=== PATIENT | female | born 1950 | race Caucasian/White ===

== ENCOUNTER → 2017-07-05 | Outpatient (CLI) | payer MEDICARE, OTHER ==
--- NOTE | 2017-07-05 11:40 | Diagnostic Imaging Report ---
INDICATION: Shortness of air, productive cough, pneumonia x1 month. TECHNIQUE: Two-view chest at 11:31 a.m. CORRELATION STUDY: None. FINDINGS: The heart size, mediastinal configuration, and pulmonary vasculature are within normal limits. Density over the lower mediastinum is present and may be reflective of a small hiatal hernia. The lungs are clear with no consolidating infiltrate. There is no significant pleural effusion or pneumothorax. Mild biapical pleural thickening. Accentuated kyphotic curvature with degenerative changes in the thoracic spine. IMPRESSION: 1. Negative for acute abnormality in the chest. No findings to suggest underlying consolidative pneumonia. Dictated by: Dictated on workstation # [id number]
== END ==
LOC: RAD 11:03
PROVIDERS: ATTEND Nurse Practitioner Family
DX: J18.9 Pneumonia, unspecified organism (principal); J40 Bronchitis, not specified as acute or chronic
CPT/HCPCS: 71046

== ENCOUNTER → 2017-07-15 | Outpatient (CLI) | payer MEDICARE, OTHER ==
[~2017-07-15] MED LIST: RT-ALBUTEROL SULF 2.5 MG/3 ML PRE-MIX VIAL INH ONE
== END ==
LOC: RT 14:00
PROVIDERS: ATTEND Nurse Practitioner Family
DX: J40 Bronchitis, not specified as acute or chronic (principal); J18.9 Pneumonia, unspecified organism; R06.00 Dyspnea, unspecified; J30.2 Other seasonal allergic rhinitis
CPT/HCPCS: 94060; 94726; 94729

== ENCOUNTER → 2017-10-10 | Outpatient (CLI) | payer MEDICARE, OTHER ==
--- NOTE | 2017-10-10 15:32 | Diagnostic Imaging Report ---
PROCEDURE: CT chest without contrast. TECHNIQUE: Multiple contiguous axial images were obtained through the chest without the use of intravenous contrast. INDICATION: Cough and congestion. Lung nodule. FINDINGS: There is a 6 mm calcified nodule in the right upper lobe. There is minimal tree-in-bud type of infiltrate seen in the lingula with some minimal peribronchial thickening at this site. No suspicious mass is seen within either lung. There is no effusion or pneumothorax. There are several calcified mediastinal lymph nodes with no suspicious mass or lymphadenopathy seen. There is a hiatal hernia. IMPRESSION: There are changes consistent with old granulomatous disease. No suspicious lung nodule is seen. There are tree-in-bud type of infiltrates in the lingula consistent with an inflammatory/infectious etiology. There is a small hiatal hernia. Dictated by: Dictated on workstation # [id number]
== END ==
LOC: RAD 15:16
PROVIDERS: ATTEND Nurse Practitioner Family
DX: J44.9 Chronic obstructive pulmonary disease, unspecified (principal); R91.8 Other nonspecific abnormal finding of lung field
CPT/HCPCS: 71250

== ENCOUNTER 2017-12-05 21:00 | Outpatient (CLI) | payer MEDICARE, OTHER | END 2017-12-06 06:15 | disposition home or self-care (01) | LOC: SLEEP 21:00 | PROVIDERS: ATTEND Nurse Practitioner Family | DX: G47.34 Idiopathic sleep related nonobstructive alveolar hypoventilation (principal); G47.10 Hypersomnia, unspecified; G47.50 Parasomnia, unspecified; G47.30 Sleep apnea, unspecified; R06.02 Shortness of breath | CPT/HCPCS: 95811 ==

== ENCOUNTER → 2018-10-16 | Outpatient (CLI) | payer MEDICARE, OTHER ==
--- NOTE | 2018-10-16 16:20 | Diagnostic Imaging Report ---
EXAMINATION: Noncontrast chest CT for lung cancer screening. HISTORY: 23-avdw-giyt history of smoking. FINDINGS: Comparison is 10/10/2017. There are two new areas of consolidation involving the upper lobes, the one on the right measures 2.6 x 1.9 cm. The one on the left measures 1.0 cm. These both abut the oblique fissure. There is bronchiectasis and nodularity involving the lingula, similar to prior exam. No pneumothorax. No edema. Lungs are emphysematous. Heart size is normal. Aorta is normal in caliber. There are moderate coronary artery calcifications. No axillary, supraclavicular or mediastinal lymphadenopathy. There are calcified mediastinal lymph nodes and a calcified granuloma in the left lower lobe. Limited views of the upper abdomen are normal. There are no suspicious osseous lesions. IMPRESSION: 1. New areas of consolidation in both upper lobes. The appearance is most suggestive of an acute infectious process. However, short-term followup (4 week) is recommended to ensure that these are decreasing as a mucinous type adenocarcinoma could appear similarly. 2. Bronchiectasis and nodularity in the lingula suggestive of an atypical mycobacterial infection such as mycobacterium avium complex. Overall [facility] assessment: 4A. Modifier: S Dictated by: Dictated on workstation # [id number]
== END ==
LOC: RAD 11:13
PROVIDERS: ATTEND Nurse Practitioner Family
DX: J18.1 Lobar pneumonia, unspecified organism (principal); J47.9 Bronchiectasis, uncomplicated; R91.1 Solitary pulmonary nodule

== ENCOUNTER 2018-10-31 05:38 | Outpatient (CLI) | payer MEDICARE, OTHER ==
[~2018-10-31] VITALS: Ht 165.1 cm; Wt 72.6 kg
[2018-10-31] MEDS ORDERED: CYAN250010 PO (11:26)
[2018-10-31] MEDS ORDERED: AROM1FL. PO (11:26)
[2018-10-31] MEDS ORDERED: [UNRECOGNIZED DRUG - REMARK] PO (11:26)
[2018-10-31] MEDS ORDERED: ASCO1TAB39 PO (11:26)
[2018-10-31] MEDS ORDERED: SKELETAL STRENGTH PO (11:26)
[2018-10-31] MEDS ORDERED: [UNRECOGNIZED DRUG - OTHER] PO (11:26)
[2018-10-31] MEDS ORDERED: MULT-178 PO (11:26)
[2018-10-31] MEDS ORDERED: ASCO500T5 PO (11:26)
[2018-10-31] MEDS ORDERED: CHOL20003 PO (11:26)
[2018-10-31] MEDS ORDERED: ACTIVATOR PO (11:26)
[2018-10-31] MEDS ORDERED: [UNRECOGNIZED DRUG - REMARK] PO (11:26)
[2018-10-31] MEDS ORDERED: FOOD ENZYMES PO (11:26)
[2018-10-31] MEDS ORDERED: DESL5TAB PO (11:26)
[2018-10-31] MEDS ORDERED: OMEG1CAP24 PO (11:26)
[2018-10-31] MEDS ORDERED: MONT10TA24 PO (11:26)
== END 2018-10-31 11:32 ==
LOC: PREOP 05:38
PROVIDERS: ATTEND Internal Medicine Critical Care Medicine
DX: Z01.818 Encounter for other preprocedural examination (principal); G47.30 Sleep apnea, unspecified; J40 Bronchitis, not specified as acute or chronic; J30.2 Other seasonal allergic rhinitis; J44.9 Chronic obstructive pulmonary disease, unspecified; R91.1 Solitary pulmonary nodule

== ENCOUNTER → 2018-11-02 | Day surgery (SDC) | payer MEDICARE, OTHER ==
[2018-11-02] VITALS (14 sets, daily range): BP systolic 105–144; BP diastolic 56–86
[~2018-11-02] VITALS: Ht 165.1 cm; Wt 72.6 kg
[~2018-11-02] MED LIST changes: +ACTIVATOR PO; +AROM1FL. PO; +ASCO1TAB39 PO; +ASCO500T5 PO; +ASCO500T6 PO; +CEFE2FRO IV; +CHOL20003 PO; +CYAN250010 PO; +DESL5TAB PO; +DESL5TAB41 PO; +FLUT1BLS3 INH; +FLUT9.9S NS; +FOOD ENZYMES PO; +LIDOCAINE JELLY 2% 6 ML SYRINGE TOP ONE; +LIDOCAINE PF 1% 2 ML VIAL IJ ONE; +LIDOCAINE PF 2% 5 ML (XYLOCAINE) VIAL INJ ONE; +LUNG SUPPORT PO; +MIDAZOLAM 2 MG/2 ML (VERSED) VIAL IVP ONE; +MIDAZOLAM 2 MG/2 ML (VERSED) VIAL ONE; +MONT10TA24 PO; +MULT-178 PO; +NS IV 500 ML 500 ML ONE; +OMEG1CAP24 PO; +RT-ALBUINH INH; -RT-ALBUTEROL SULF 2.5 MG/3 ML PRE-MIX VIAL INH ONE; +SKELETAL STRENGTH PO; +SODIUM BICARB 8.4% 50 MEQ/50 ML VIAL ONE; +[UNRECOGNIZED DRUG - OTHER] PO; +[UNRECOGNIZED DRUG - REMARK] PO; +[UNRECOGNIZED DRUG - REMARK] PO; +[UNRECOGNIZED DRUG - REMARK] PO; +fentaNYL INJECTION 100 MCG/2 ML AMP IVP ONE; +fentaNYL INJECTION 100 MCG/2 ML AMP ONE
[2018-11-02] MEDS: NS IV 500 ML 500 ML IV PRN ×2 (07:20→07:25)
--- NOTE | 2018-11-02 08:07 | Pulmonary Procedures ---
Pulmonary Procedures Date of Procedure Date of Service: Nov 02, 2018 Bronch Bronchoscopy with brush x 2 rakesh, RUL bronchoalveolar lavage (BAL), bilateral bronchial washes and, transbronchial brushes using fluoroscopy . Preop DX lung nodule/infiltrate Postop DX: same - No endobronchial mass Complications: none After informed consent obtained and formal time out pt was sedated using Fentanyl and Versed. Bronchoscope was advanced through the nare and vocal cords. 1% lidocaine was used to anesthetize vocal cords, epiglottis, rakesh, and left/right main stem bronchus. An anatomical tour was undertaken down to the segmental bronchi bilaterally. No endobronchial lesions noted. brush x 2 rakesh, RUL bronchoalveolar lavage (BAL), bilateral bronchial washes and, transbronchial brushes using fluoroscopy were obtained. Pt tolerated procedure well. No complications noted. Stat CXR is pending. SAMIR CROSS DO Nov 02, 2018 08:07
--- NOTE | 2018-11-02 08:08 | Progress Note-Pre Operative ---
Pre-Operative Progress Note H&P Reviewed The H&P was reviewed, patient examined and no changes noted. Time Seen by Provider: 07:30 Date H&P Reviewed: Nov 02, 2018 Time H&P Reviewed: 08:08 Pre-Operative Diagnosis: SMAIR MELTON DO Nov 02, 2018 08:08
--- NOTE | 2018-11-02 08:09 | Pre-Op Note & Conscious Sedat ---
Pre-Operative Progress Note H&P Reviewed The H&P was reviewed, patient examined and no changes noted. Date H&P Reviewed: Nov 02, 2018 Time H&P Reviewed: 07:30 Conscious Sedation Pre-Proced Time 07:30 ASA Score 3 For ASA 3 and 4: Consider anesthesia and medical clearance. Also, for patients with a history of failed moderate sedation consider anesthesia. Airway Lungs Heart ASA score ASA 1: a normal healthy patient ASA 2: a patient with a mild systemic disease (mid diabetes, controlled hypertension, obesity ASA 3: a patient with a severe systemic disease that limits activity (angina, COPD, prior Myocardial infarction) ASA 4: a patient with an incapacitating disease that is a constant threat to life (CHF, renal failure) ASA 5: a moribund patient not expected to survive 24 hrs. (ruptured aneurysm) ASA 6: a declared brain- patient whose organs are being harvested. For emergent operations, add the letter E after the classification Mallampati Classification Grade 3 Sedation Plan Analgesia, Amnesia, Plan communicated to team members, Discussed options with patient/fam, Discussed risks with patient/fam The patient is an appropriate candidate to undergo the planned procedure, sedation, and anesthesia. The patient immediately re-assessed prior to indication. SAMIR CROSS DO Nov 02, 2018 08:09
--- NOTE | 2018-11-02 08:47 | Diagnostic Imaging Report ---
INDICATION: Post bronchoscopy. Frontal chest obtained at 8:36 a.m. and compared to 07/05/2017. FINDINGS: Heart is normal in size. Mediastinal silhouette appears unremarkable. There is a small hiatal hernia. There is ill-defined density in the right upper lobe. There is no pneumothorax or pleural fluid post bronchoscopy. IMPRESSION: Small ill-defined nodular density overlying right upper lobe. No pneumothorax or pleural fluid following bronchoscopy. Dictated by: Dictated on workstation # [id number]
--- NOTE | 2018-11-02 08:59 | Diagnostic Imaging Report ---
Indication: Bronchoscopy. 21 seconds of fluoroscopy time were utilized during bronchoscopy. Impression: 21 seconds of fluoroscopy utilized during bronchoscopy. Dictated by: Dictated on workstation # [id number]
== END | disposition home or self-care (01) ==
LOC: ENDO 07:01
PROVIDERS: ATTEND Internal Medicine Critical Care Medicine
DX: R91.1 Solitary pulmonary nodule (principal); J44.9 Chronic obstructive pulmonary disease, unspecified; G47.33 Obstructive sleep apnea (adult) (pediatric); J30.2 Other seasonal allergic rhinitis; Z88.0 Allergy status to penicillin; Z88.1 Allergy status to other antibiotic agents; Z79.899 Other long term (current) drug therapy; Z87.891 Personal history of nicotine dependence
CPT/HCPCS: 71045; 87015; 87070; 87077; 87101; 87116; 87186; 87205; 87206; 88112; 88305; 88312; 94640

== ENCOUNTER 2018-11-07 13:41 | Inpatient (IN) | payer MEDICARE, OTHER ==
[~2018-11-07] VITALS: Ht 165.1 cm; Wt 74.8 kg
[~2018-11-07 13:41] MED LIST changes: -ASCO500T6 PO; -CEFE2FRO IV; -DESL5TAB41 PO; -FLUT1BLS3 INH; -FLUT9.9S NS; -LIDOCAINE JELLY 2% 6 ML SYRINGE TOP ONE; -LIDOCAINE PF 1% 2 ML VIAL IJ ONE; -LIDOCAINE PF 2% 5 ML (XYLOCAINE) VIAL INJ ONE; -LUNG SUPPORT PO; -MIDAZOLAM 2 MG/2 ML (VERSED) VIAL IVP ONE; -MIDAZOLAM 2 MG/2 ML (VERSED) VIAL ONE; -NS IV 500 ML 500 ML ONE; -RT-ALBUINH INH; -SODIUM BICARB 8.4% 50 MEQ/50 ML VIAL ONE; -[UNRECOGNIZED DRUG - REMARK] PO; -fentaNYL INJECTION 100 MCG/2 ML AMP IVP ONE; -fentaNYL INJECTION 100 MCG/2 ML AMP ONE
--- NOTE | 2018-11-07 14:00 | NUR ---
ISMAEL BURCIAGA admitted to room 429-1, with an admitting diagnosis of PNEUMONIA, on 11/07/[address] CROSS OFFICE via W/C, accompanied by STAFF AND FAMILY. ISMAEL BURCIAGA introduced to surroundings, call light, bed controls, phone, TV, temperature control, lights, meal times, smoking policy, visitor policy, side rail policy, bathrooms and showers. Patient Rights given to patient in the handbook. ISMAEL BURCIAGA verbalizes understanding that [facility] is not responsible for the loss or damage to any personal effects or valuables that are kept in the patients posession during their hospitalization. The following Patient Care Plans were discussed with the PATIENT: Discharge Planning, INFECTION,KNOWLEDGE AND INEFFECTIVE BREATHING. ISMAEL BURCIAGA verbalizes understanding of Interdisciplinary Patient Education.
[2018-11-07 14:30] VITALS: BP 130/71
[2018-11-07 14:38] VITALS: BP 130/70
[2018-11-07 14:54] LABS: BILIRUBIN,URINE NEGATIVE (NEGATIVE); CLARITY,URINE CLEAR; COLOR,URINE YELLOW; GLUCOSE, URINE (UA) NEGATIVE (NEGATIVE); KETONES,URINE NEGATIVE (NEGATIVE); LEUKOCYTE ESTERASE ,URINE NEGATIVE (NEGATIVE); NITRITE,URINE NEGATIVE (NEGATIVE); PH,URINE 5 (5-9); PROTEIN,URINE NEGATIVE (NEGATIVE); UROBILINOGEN,URINE NORMAL (NORMAL)
[2018-11-07] MEDS ORDERED: DESL5TAB41 PO (14:58)
[2018-11-07] MEDS ORDERED: ASCO500T6 PO (14:58)
[2018-11-07] MEDS ORDERED: [UNRECOGNIZED DRUG - REMARK] PO (14:58)
[2018-11-07] MEDS ORDERED: LUNG SUPPORT PO (14:58)
[2018-11-07] MEDS ORDERED: FLUT1BLS3 INH (14:58)
[2018-11-07] MEDS ORDERED: FLUT9.9S NS (14:59)
[2018-11-07] MEDS ORDERED: RT-ALBUINH INH (14:59)
[2018-11-07 15:05] LABS: BACTERIA,URINE TRACE /HPF; RBC,URINE RARE /HPF; SQUAMOUS EPITHELIAL CELL,UR RARE /HPF
[2018-11-07] MEDS ORDERED: NS IV 1000 ML 1,000 ML ONE (15:08)
--- NOTE | 2018-11-07 15:09 | NUR ---
PATIENT HAD A MEDICATION LIST WITH HER AND THERE WAS A LIST FROM THE DR OFFICE ON HER CHART. WE WENT OVER BOTH LISTS WELL THE EXT MED HX. SHE STATES SHE IS NO LONGER TAKING THE FEXOFENADINE 180MG THAT WAS FILLED 07-24-18 #90 OTC MEDICATIONS INCLUDE: FLONASE 2 SPRAYS DAILY MTV HS B12 2500MCG HS VITAMIN D 2000IU HS FISH OIL 2 HS HAIR SKIN AND NAILS +BIOTIN HS VITAMIN C 500MG HS CASCARA [place] HS FOOD ENZYMES 1 CAP WITH LUNCH AND 1 CAP WITH DINNER LUNG SUPPORT HS POTASSIUM COMBO HS KIDNEY ACTIVATOR HS SKELETAL STRENGTH HS SF FORMULA HS (SEVERAL OF HER OTC MEDS ARE NATURE'S SUNSHINE HERBS)
[2018-11-07 15:14] LABS: HEMOGLOBIN 12.9 G/DL (11.5-16.0); MEAN PLATELET VOLUME 11.6 FL (7.4-10.4); RED CELL DISTRIBUTION WIDTH 13.2 % (10.0-14.5); WHITE BLOOD COUNT 7.1 10^3/uL (4.3-11.0)
--- NOTE | 2018-11-07 15:25 | Diagnostic Imaging Report ---
INDICATION: Pneumonia. TIME OF EXAMINATION: 2:49 PM. COMPARISON: 11/02/2018. FINDINGS: The heart size is stable. Minimal patchy infiltrate in the right upper lobe does appear to be improved and partially cleared. The remainder of the lung hernandez is stable. No effusion or pneumothorax is identified. IMPRESSION: Partial clearing of the right upper lobe pneumonia since the exam of 5 days earlier. Dictated by: Dictated on workstation # [id number]
[2018-11-07] MEDS ORDERED: RT-ALBUTEROL/IPRATROPIUM 3 ML (DUONEB) VIAL IH PRN (15:30)
[2018-11-07] MEDS ORDERED: CATHETER FLUSH 10 ML SYR IV PRN (15:30)
[2018-11-07] MEDS: CEFEPIME 1,000 MG/SWFI 10 ML IV PUSH IV SCH ×2 (15:33)
[2018-11-07] MEDS: NS IV 1000 ML 1,000 ML IV SCH (15:33)
[2018-11-07 15:34] LABS: ALANINE AMINOTRANSFERASE 21 U/L (0-55); ALBUMIN 3.8 GM/DL (3.2-4.5); ALKALINE PHOSPHATASE 111 U/L (40-136); BILIRUBIN,TOTAL 0.4 MG/DL (0.1-1.0); BUN/CREATININE RATIO 23; CALCIUM 9.5 MG/DL (8.5-10.1); CARBON DIOXIDE 25 MMOL/L (21-32); CHLORIDE 104 MMOL/L (98-107); CREATININE SERUM 0.77 MG/DL (0.60-1.30); GFR ESTIMATED > 60; GLUCOSE 140 MG/DL (70-105); MAGNESIUM 2.2 MG/DL (1.6-2.4); PHOSPHORUS 2.8 MG/DL (2.3-4.7); POTASSIUM 3.4 MMOL/L (3.6-5.0); SODIUM 139 MMOL/L (135-145)
[2018-11-07] MEDS: ENOXAPARIN 40 MG/0.4 ML (LOVENOX) SYR SC SCH (15:34)
[2018-11-07 16:02] VITALS: BP 137/72
[2018-11-07 20:33] VITALS: BP 144/78
[2018-11-08 00:05] VITALS: BP 134/81
[2018-11-08] MEDS: CEFEPIME 1,000 MG/SWFI 10 ML IV PUSH IV SCH ×4 (00:08→08:29)
[2018-11-08 04:30] VITALS: BP 119/61
[2018-11-08] MEDS: NS IV 1000 ML 1,000 ML IV SCH (05:11)
[2018-11-08 05:39] LABS: BASOPHILS % (AUTO) 1 % (0-10); EOSINOPHILS # (AUTO) 0.1 10^3/uL (0.0-0.3); EOSINOPHILS % (AUTO) 2 % (0-10); HEMATOCRIT 35 % (35-52); HEMOGLOBIN 11.6 G/DL (11.5-16.0); LYMPHOCYTES # (AUTO) 1.3 X 10^3 (1.0-4.0); LYMPHOCYTES % (AUTO) 23 % (12-44); MEAN CORPUSCULAR HEMOGLOBIN 32 PG (25-34); MEAN CORPUSCULAR HGB CONC 33 G/DL (32-36); MEAN CORPUSCULAR VOLUME 96 FL (80-99); MEAN PLATELET VOLUME 11.8 FL (7.4-10.4); MONOCYTES # (AUTO) 0.6 X 10^3 (0.0-1.0); MONOCYTES % (AUTO) 11 % (0-12); NEUTROPHILS # (AUTO) 3.7 X 10^3 (1.8-7.8); NEUTROPHILS % (AUTO) 64 % (42-75); PLATELET COUNT 150 10^3/uL (130-400); RED CELL DISTRIBUTION WIDTH 13.3 % (10.0-14.5); WHITE BLOOD COUNT 5.7 10^3/uL (4.3-11.0)
[2018-11-08 06:00] LABS: BUN/CREATININE RATIO 15; CALCIUM 8.7 MG/DL (8.5-10.1); CARBON DIOXIDE 22 MMOL/L (21-32); CHLORIDE 108 MMOL/L (98-107); CREATININE SERUM 0.66 MG/DL (0.60-1.30); GFR ESTIMATED > 60; GLUCOSE 93 MG/DL (70-105); MAGNESIUM 1.7 MG/DL (1.6-2.4); POTASSIUM 3.3 MMOL/L (3.6-5.0); SODIUM 141 MMOL/L (135-145)
[2018-11-08 08:00] VITALS: BP 143/83
[2018-11-08] MEDS: RT-ALBUTEROL/IPRATROPIUM 3 ML (DUONEB) VIAL IH SCH ×2 (09:35→14:28)
[2018-11-08] MEDS ORDERED: CEFE2FRO IV (11:43)
--- NOTE | 2018-11-08 11:52 | History & Physical-Hospitalist ---
History of Present Illness HPI/Chief Complaint Leeanna Roman is a 67-year-old female who presented to as a direct admission from pulmonary clinic with pneumonia due to Pseudomonas. She reports that she had been having fevers for about a week. She has also been having a cough and worsening shortness of breath over this time. She has had difficulty with pneumonias in the past. She follows with Dr. Romeo, pulmonology. She recently underwent a bronchoscopy and the cultures turn positive for Pseudomonas. Due to her history of allergies to penicillin and Levaquin, she was unable to receive oral antibiotics. She denies any chest pain, abdominal pain, nausea, vomiting. Source: patient Exam Limitations: no limitations Date Seen 11/08/18 Time Seen by a Provider: 09:30 Attending Physician Delaney Garcia MD PCP Trung Mcintyre DO Referring Physician Date of Admission Nov 07, 2018 at 14:00 Home Medications & Allergies Home Medications Reviewed patient Home Medication Reconciliation performed by pharmacy medication reconciliations autocad technician and/or nursing. Patients Allergies have been reviewed. Allergies Allergies Coded Allergies Penicillins (Unverified Allergy, Severe, RASH, 07/15/17) levofloxacin (Unverified Allergy, Severe, RASH, 07/15/17) Past Cspwfnz-Hlgffb-Gjsvmc Hx Past Med/Social Hx: Reviewed Nursing Past Med/Soc Hx Patient Social History Alcohol Use: Denies Use Recreational Drug Use: No Former Smoker, Quit: Oct 31, 2004 2nd Hand Smoke Exposure: No Physical Abuse Screen: No Sexual Abuse: No Recent Foreign Travel: Yes Contact w/other who traveled: Yes Recent Hopitalizations: No Recent Infectious Disease Expo: Yes Seasonal Allergies Seasonal Allergies: Yes Past Medical History Currently Using CPAP: Yes Currently Using BIPAP: No Sexually Transmitted Disease: No HIV/AIDS: No Genitourinary: UTI-Chronic Gastrointestinal: Gastroesophageal Reflux, Chronic Constipation Musculoskeletal: Arthritis HEENT: Cataract Loss of Vision: Denies Hearing Impairment: Denies Cancer: Cervical History of Blood Disorders: No Adverse Reaction to Blood Murrell: No (N/A) Review of Systems Constitutional: fever EENTM: nose congestion Respiratory: cough, phlegm, short of breath Cardiovascular: no symptoms reported Gastrointestinal: no symptoms reported Genitourinary: no symptoms reported Musculoskeletal: no symptoms reported Skin: no symptoms reported Psychiatric/Neurological: No Symptoms Reported Physical Exam Physical Exam Vital Signs Vital Signs - First Documented 11/07/18 14:30 Temp 99.6 Pulse 90 Resp 18 B/P (MAP) 130/71 (90) Pulse Ox 96 O2 Delivery Room Air Capillary Refill : Height, Weight, BMI Height: 5'5.00" Weight: 165lbs. 0.0oz. 74.127560jz; 27.5 BMI Method: General Appearance: No Apparent Distress, WD/WN HEENT: PERRL/EOMI, Pharynx Normal Neck: Normal Inspection, Non Tender, Supple Respiratory: Lungs Clear, Normal Breath Sounds, No Respiratory Distress; No C rackles, No Wheezing Cardiovascular: Regular Rate, Rhythm, No Edema, No Murmur Gastrointestinal: Normal Bowel Sounds, Non Tender, Soft Extremity: Normal Inspection, Non Tender, No Pedal Edema Neurologic/Psychiatric: Alert, Oriented x3, No Motor/Sensory Deficits Skin: Normal Color, Warm/Dry Lymphatic: No Adenopathy Results Results/Procedures Labs Laboratory Tests 11/07/18 14:56 11/08/18 05:00 Patient resulted labs reviewed. Imaging: Reviewed Imaging Report Assessment/Plan Admission Diagnosis Pneumonia due to Pseudomonas Admission Status: Inpatient Order (span 2 midnights) Reason for Inpatient Admission: IV antibiotics Assessment and Plan Pneumonia due to Pseudomonas chest x-ray consistent with pneumonia WBC normal, presentation not consistent with sepsis Bronchoscopy culture growing Pseudomonas allergies to penicillin and Levaquinwith anaphylaxis Started on cefepime, tolerating well Please midline for outpatient antibiotics Social work consultation for assistance with outpatient antibiotics Planning for cefepime 2 g IV twice daily for 10 days total Hypokalemia Monitor replace as needed Diagnosis/Problems Diagnosis/Problems (1) Pneumonia due to Pseudomonas Status: Acute (2) Hypokalemia Status: Acute Clinical Quality Measures DVT/VTE Risk/Contraindication: Risk Factor Score Per Nursin RFS Level Per Nursing on Admit: 4+=Very High DELANEY GARCIA MD Nov 08, 2018 11:52
[2018-11-08 12:00] VITALS: BP 99/62
--- NOTE | 2018-11-08 13:05 | Pulmonary Consultation ---
History of Present Illness History of Present Illness Date of Consultation 11/08/18 13:02 Date of Admission Allergies and Home Medications Allergies Coded Allergies: Penicillins (Unverified Allergy, Severe, RASH, 07/15/17) levofloxacin (Unverified Allergy, Severe, RASH, 07/15/17) Home Medications Albuterol Sulfate 1 Puff Puff, 2 PUFF INH Q4H PRN for SHORTNESS OF BREATH, (Reported) Aromatic Cascara Fluid Extract 1 Ml Fl.extract, 1 CAP PO DAILY PRN for BOWEL REGULARITY, (Reported) Ascorbic Acid 500 Mg Tablet, 500 MG PO HS, (Reported) Ascorbic Acid/Vitamin E/Biotin 1 Each Tab.chew, 1 TAB.CHEW PO HS, (Reported) Cefepime HCl/Dextrose, Iso-Osm 2 Gm/100 Ml Froz.piggy, 2 GM IV BID Prescribed by: DELANEY GARCIA on 11/08/18 1143 Cholecalciferol (Vitamin D3) 2,000 Unit Capsule, 2,000 UNIT PO HS, (Reported) Cyanocobalamin (Vitamin B-12) 2,500 Mcg Tablet, 2,500 MCG PO HS, (Reported) Desloratadine 5 Mg Tablet, 5 MG PO HS, (Reported) Fluticasone Propionate 9.9 Ml [place].susp, 2 SPRAY NS DAILY, (Reported) Fluticasone/Umeclidin/Vilanter 1 Each Blst.w.dev, 1 PUFF INH DAILY, (Reported) Montelukast Sodium 10 Mg Tablet, 10 MG PO HS, (Reported) Multivitamin 1 Each Tablet, 1 TAB PO HS, (Reported) [place]-3 Fatty Acids/Fish Oil 1 Each Capsule.dr, 2 CAP PO HS, (Reported) [Food Enzymes] , 1 CAP PO 1200,1730, (Reported) [Kidney Activator] , 1 CAP PO HS, (Reported) [Lung Support] , 1 CAP PO HS, (Reported) [Potassium Combo] , 1 CAP PO HS, (Reported) [Sf Formula] , 1 CAP PO HS, (Reported) [Skeletal Strength] , 1 CAP PO HS, (Reported) Past Bmlatqg-Gscsug-Vooymb Hx Past Med/Social Hx: Reviewed Nursing Past Med/Soc Hx Patient Social History Alcohol Use: Denies Use Recreational Drug Use: No Former Smoker, Quit: Oct 31, 2004 2nd Hand Smoke Exposure: No Recent Foreign Travel: Yes Contact w/Someone Who Travel: Yes Recent Infectious Disease Expo: Yes Recent Hopitalizations: No Seasonal Allergies Seasonal Allergies: Yes Past Medical History Surgeries: Yes (LEFT BREAST BX, HERNIA, D&C, CATARACT) Respiratory: Yes (SOB) Asthma, Pneumonia, Sleep Apnea, COPD Currently Using CPAP: Yes Currently Using BIPAP: No Cardiac: No Neurological: No Sexually Transmitted Disease: No HIV/AIDS: No Genitourinary: Yes UTI-Chronic Gastrointestinal: Yes Gastroesophageal Reflux, Chronic Constipation Musculoskeletal: Yes Arthritis Endocrine: No HEENT: Yes (GLASSES) Cataract Loss of Vision: Denies Hearing Impairment: Denies Cancer: Yes (cervical cancer 1969) Cervical Psychosocial: No Integumentary: No Blood Disorders: No Adverse Reaction/Blood Tranf: No (N/A) Review of Systems Time Seen by Provider: 13:05 Sepsis Event Evaluation Height, Weight, BMI Height: 5'5.00" Weight: 165lbs. 0.0oz. 74.291329jy; 27.5 BMI Method: Exam Exam Vital Signs Date Time Temp Pulse Resp B/P (MAP) Pulse Ox O2 Delivery O2 Flow Rate FiO2 11/08/18 12:00 97.6 88 18 99/62 (74) 94 Room Air 11/08/18 09:35 97 Room Air 11/08/18 08:00 98.0 84 18 143/83 (103) 95 Room Air 11/08/18 08:00 Room Air 11/08/18 04:30 98.2 85 18 119/61 (80) 95 NIV CPAP 11/08/18 00:55 98.5 11/08/18 00:05 100.5 89 18 134/81 (98) 93 Room Air 11/07/18 20:33 99.8 84 18 144/78 (100) 95 Room Air 11/07/18 20:00 95 Room Air 11/07/18 19:51 95 Room Air 11/07/18 16:42 Room Air 11/07/18 16:02 99.2 89 18 137/72 (93) 95 Room Air 11/07/18 14:38 99.6 90 18 130/70 Room Air 11/07/18 14:30 99.6 90 18 130/71 (90) 96 Room Air I & O 11/08/18 07:00 Intake Total 1810 ml Output Total 1150 ml Balance 660 ml Height & Weight Height: 5'5.00" Weight: 165lbs. 0.0oz. 74.574120rz; 27.5 BMI Method: General Appearance: No Apparent Distress, WD/WN HEENT: PERRL/EOMI, Pharynx Normal Neck: Normal Inspection, Non Tender, Supple Respiratory: Lungs Clear, Normal Breath Sounds, No Respiratory Distress Cardiovascular: Regular Rate, Rhythm, No Edema, No Murmur Extremity: Normal Inspection, Non Tender, No Pedal Edema Neurologic/Psychiatric: Alert, Oriented x3, No Motor/Sensory Deficits Skin: Normal Color, Warm/Dry Lymphatic: No Adenopathy Results Lab Laboratory Tests 11/07/18 14:56 11/08/18 05:00 Assessment/Plan Assessment/Plan Pseudomonas PNA - Pt is allergic to PCN and Levaquin -Currently on Cefepime -trying to arrange out pt abx currently -Will need 10-14 days of IV abx -Will f/u next Tuesday at 1300 if discharged to ensure pt is improving SAMIR CROSS DO Nov 08, 2018 13:05
--- NOTE | 2018-11-08 14:04 | Discharge Inst-Simple/Standard ---
Discharge Inst-Standard Reconcile Patient Problems Problems Reviewed?: Yes Discharge Medications New, Converted or Re-Newed RX: RX on Chart Patient Instructions/Follow Up Plan of Care/Instructions/FU: Take medications as prescribed. Antibiotic plan in place. Follow up with Dr. Romeo on 11/14 at 1 pm with a CBC and chest xray prior to the appointment. Activity as Tolerated: Yes Discharge Diet: No Restrictions Return to The Hospital For: persistent fevers, shortness of breath, chest pain, or if you feel like you are getting worse Planned Outpatient Orders/Ref. Pneu Vac Indicated: Yes DELANEY GARCIA MD Nov 08, 2018 14:04
[2018-11-08] MEDS ORDERED: CEFEPIME INJECTION 2,000 MG in WATER (STERILE) FOR INJECTION 20 ML IV NR (14:15)
[2018-11-08] MEDS: ENOXAPARIN 40 MG/0.4 ML (LOVENOX) SYR SC SCH (14:29)
--- NOTE | 2018-11-08 15:04 | NUR ---
CM/SS. Respond to consult for outpatient antibiotics x 9 days. OP ABX: Coordinated with [facility], patient's home town. Worked in partnership with Rosalio salgado, all requests met for orders and instructions. Patient understands she is to report there at 0900 and contact information was provided so she can get questions answered if they arise.
[2018-11-08 16:49] VITALS: BP 99/62
--- NOTE | 2018-11-09 14:04 | Discharge Summary ---
Diagnosis/Chief Complaint Date of Admission Nov 08, 2018 at 09:43 Date of Discharge Nov 08, 2018 at 16:50 Discharge Date: Nov 08, 2018 Admission Diagnosis Pneumonia due to Pseudomonas Primary Care Trung Mcintyre DO Discharge Diagnosis Pneumonia due to Pseudomonas (1) Pneumonia due to Pseudomonas Status: Acute (2) Hypokalemia Status: Resolved Discharge Summary Discharge Physical Exam Allergies: Coded Allergies: Penicillins (Unverified Allergy, Severe, RASH, 07/15/17) levofloxacin (Unverified Allergy, Severe, RASH, 07/15/17) Vitals & I&Os Vital Signs Date Time Temp Pulse Resp B/P (MAP) Pulse Ox O2 Delivery O2 Flow Rate FiO2 11/08/18 16:49 88 18 99/62 95 Room Air 11/08/18 12:00 97.6 General Appearance: No Apparent Distress Hospital Course Leeanna Roman is a 67-year-old female who was admitted with pneumonia due to Pseudomonas. She had been having fevers for the past week. She underwent a bronchoscopy and cultures grew Pseudomonas. Due to allergies she required IV antibiotics. She was started on IV cefepime and this was continued on disch arge. She has had up to receive IV antibiotics as an outpatient. She'll follow up with Dr. Romeo in his clinic prior to antibiotic cessation. Labs (last 24 hrs) Patient resulted labs reviewed. Imaging: Reviewed Imaging Report Discussion & Recommendations Discharge Planning: >30 minutes discharge planning Coordination of care Discharge Home Medications: Active Scripts Active Cefepime 2 gm Injection (Cefepime HCl/Dextrose, Iso-Osm) 2 Gm/100 Ml Froz.piggy 2 Gm IV BID 9 Days Reported Flonase Allergy Relief (Fluticasone Propionate) 9.9 Ml [place].susp 2 [place]ony NS DAILY Proair Hfa (Albuterol Sulfate) 1 Puff Puff 2 Puff INH Q4H PRN Desloratadine 5 Mg Tablet 5 Mg PO HS Trelegy Ellipta 100-62.5-25 (Fluticasone/Umeclidin/Vilanter) 1 Each Blst.w.dev 1 Puff INH DAILY [Lung Support] 1 Cap PO HS [Sf Formula] 1 Cap PO HS Vitamin C (Ascorbic Acid) 500 Mg Tablet 500 Mg PO HS [place] (Aromatic [place]ascara Fluid Extract) 1 Ml Fl.extract 1 Cap PO DAILY PRN [Food Enzymes] 1 Cap PO 1200,1730 [Skeletal Strength] 1 Cap PO HS [Potassium Combo] 1 Cap PO HS [Kidney Activator] 1 Cap PO HS Hair Skin Nails-Biotin Gummies (Ascorbic Acid/Vitamin E/Biotin) 1 Each Tab.chew 1 Tab.chew PO HS Vitamin B12 (Cyanocobalamin (Vitamin B-12)) 2,500 Mcg Tablet 2,500 Mcg PO HS Vitamin D3 (Cholecalciferol (Vitamin D3)) 2,000 Unit Capsule 2,000 Unit PO HS Multiple Vitamins (Multivitamin) 1 Each Tablet 1 Tab PO HS [place] 3 Fish Oil Softgel ([place]-3 Fatty Acids/Fish Oil) 1 Each Capsule. 2 Cap PO HS Montelukast Sodium 10 Mg Tablet 10 Mg PO HS Condition at discharge Stable Instructions to patient/family Please see electronic discharge instructions given to patient. Clinical Quality Measures DVT/VTE Risk/Contraindication: Risk Factor Score Per Nursin RFS Level Per Nursing on Admit: 4+=Very High DELANEY GARCIA MD Nov 09, 2018 14:04
== END 2018-11-08 16:50 | disposition home or self-care (01) | DRG 179 ==
LOC: UNDOADMIN 14:00 → 4TH 14:00 → UNDODISIN 11-08 16:50
PROVIDERS: ADMIT Internal Medicine Critical Care Medicine; ATTEND Internal Medicine
DX: J15.1 Pneumonia due to Pseudomonas (principal); J30.2 Other seasonal allergic rhinitis; J44.9 Chronic obstructive pulmonary disease, unspecified; K21.9 Gastro-esophageal reflux disease without esophagitis; K59.09 Other constipation; G47.30 Sleep apnea, unspecified; M19.91 Primary osteoarthritis, unspecified site; E87.6 Hypokalemia; Z88.0 Allergy status to penicillin; Z88.1 Allergy status to other antibiotic agents; Z87.891 Personal history of nicotine dependence; Z85.41 Personal history of malignant neoplasm of cervix uteri; Z87.440 Personal history of urinary (tract) infections
CPT/HCPCS: 36415; 71045; 76937; 80048; 80053; 81000; 83735; 84100; 85025; 85027; 87040; 94640; 94664; 94760

== ENCOUNTER → 2018-11-14 | Outpatient (CLI) | payer MEDICARE, OTHER ==
[~2018-11-14] MED LIST changes: +ASCO500T6 PO; +CEFE2FRO IV; +DESL5TAB41 PO; +FLUT1BLS3 INH; +FLUT9.9S NS; +LUNG SUPPORT PO; +RT-ALBUINH INH; +[UNRECOGNIZED DRUG - REMARK] PO
[2018-11-14 14:10] LABS: BASOPHILS % (AUTO) 1 % (0-10); EOSINOPHILS # (AUTO) 0.2 10^3/uL (0.0-0.3); EOSINOPHILS % (AUTO) 3 % (0-10); HEMATOCRIT 40 % (35-52); HEMOGLOBIN 13.1 G/DL (11.5-16.0); LYMPHOCYTES # (AUTO) 1.4 X 10^3 (1.0-4.0); LYMPHOCYTES % (AUTO) 24 % (12-44); MEAN CORPUSCULAR HEMOGLOBIN 31 PG (25-34); MEAN CORPUSCULAR HGB CONC 33 G/DL (32-36); MEAN CORPUSCULAR VOLUME 95 FL (80-99); MEAN PLATELET VOLUME 11.1 FL (7.4-10.4); MONOCYTES # (AUTO) 0.3 X 10^3 (0.0-1.0); MONOCYTES % (AUTO) 6 % (0-12); NEUTROPHILS # (AUTO) 3.8 X 10^3 (1.8-7.8); NEUTROPHILS % (AUTO) 67 % (42-75); PLATELET COUNT 205 10^3/uL (130-400); WHITE BLOOD COUNT 5.7 10^3/uL (4.3-11.0)
--- NOTE | 2018-11-14 14:26 | Diagnostic Imaging Report ---
INDICATION: PSEUDOMONAS ABNORMAL FINDING OF LUNG BROCHITIS COPD SOB ASTHMA COMPARISON: 11/07/2018 FINDINGS: Frontal and lateral views of the chest demonstrate normal heart size and pulmonary vascularity. The lungs are clear. There are no signs of infiltrate, pleural effusions or pneumothoraces. The visualized osseous structures show no acute abnormalities. IMPRESSION: 1. No acute process. No signs of infiltrates, effusions or pneumothoraces. Dictated by: Dictated on workstation # [id number]
== END ==
LOC: RAD 13:37
PROVIDERS: ATTEND Nurse Practitioner Family
DX: J44.9 Chronic obstructive pulmonary disease, unspecified (principal); B96.5 Pseudomonas (aeruginosa) (mallei) (pseudomallei) as the cause of diseases classified elsewhere; J40 Bronchitis, not specified as acute or chronic
CPT/HCPCS: 36415; 71046; 85025